=== PATIENT | male | born 1980 | race Caucasian/White ===

== ENCOUNTER 2024-07-14 06:22 | Day surgery (SDC) | payer OTHER, SELFPAY | END 2024-07-14 15:46 | disposition home or self-care (01) | LOC: GI 06:22 | PROVIDERS: ATTENDING PHYSICIAN Student in an Organized Health Care Education/Training Program | DX: Z12.11 Encounter for screening for malignant neoplasm of colon (principal); D12.1 Benign neoplasm of appendix | CPT/HCPCS: 45380; 88305 ==